=== PATIENT | female | born 1980 | race Caucasian/White ===

== ENCOUNTER → 2017-04-17 | Day surgery (SDC) | payer OTHER ==
[~2017-04-17] MED LIST: BUPIVACAINE HCL 0.25% MPF 10 ML SOL INFIL ONE; TRIAMCINOLONE ACETONIDE 40 MG/ML SUS ONE
[2017-04-17 15:09] VITALS: BP 111/78; PULSE 91; RESP 12; TEMP 99.8; O2SAT 99
== END | disposition home or self-care (01) ==
LOC: SURG 13:46
PROVIDERS: ATTEND Nurse Anesthetist, Certified Registered
DX: M12.88 Other specific arthropathies, not elsewhere classified, other specified site (principal)
CPT/HCPCS: 27096; 77003; J3300